=== PATIENT | female | born 1975 | race Caucasian/White ===

== ENCOUNTER → 2021-01-11 | Outpatient (CLI) | payer OTHER ==
[~2021-01-11] MED LIST: ARMOUR THYROID PO; CYMBALTA20 M2 PO; HYDCHL12.5 PO
[2021-01-11 09:22] LABS: BASOPHILS ABSOLUTE AUTO 0.04 K/mm3 (0.00-0.23); BASOPHILS PERCENT AUTO 1 % (0-2); EOSINOPHILS ABSOLUTE AUTO 0.34 K/mm3 (0.00-0.68); EOSINOPHILS PERCENT AUTO 5 % (0-6); Hematocrit 38.4 % (33.0-51.0); Hemoglobin 12.5 g/dL (11.5-16.0); IMMATURE GRAN ABSOLUTE AUTO 0.03 K/mm3 (0.00-0.10); IMMATURE GRAN PERCENT AUTO 0 % (0-1); LYMPHOCYTES ABSOLUTE AUTO 1.52 K/mm3 (0.84-5.20); LYMPHOCYTES PERCENT AUTO 20 % (21-46); MONOCYTES ABSOLUTE AUTO 0.43 K/mm3 (0.16-1.47); MONOCYTES PERCENT AUTO 6 % (4-13); Mean Corpuscular HGB 26.8 pg (26.0-34.0); Mean Corpuscular HGB Conc 32.6 g/dL (31.5-36.5); Mean Corpuscular Volume 82 fL (80-100); Mean Platelet Volume 9.7 fL (9.1-12.4); NEUTROPHILS ABSOLUTE AUTO 5.19 K/mm3 (1.96-9.15); NEUTROPHILS PERCENT AUTO 69 % (41-73); Platelet Count 273 K/mm3 (150-400); RDW Coefficient Variation 14.6 % (11.7-14.2); RDW Standard Deviation 43.1 fL (35.1-46.3); Red Blood Cell Count 4.66 M/mm3 (3.80-5.20); White Blood Cell Count 7.55 K/mm3 (4.00-11.30)
[2021-01-11 09:31] LABS: Alanine Aminotransfer (ALT/SGP 20 U/L (12-78); Albumin, Blood 3.5 g/dL (3.4-5.0); Albumin/Globulin Ratio 0.9 (0.8-1.8); Alk Phos 88 U/L (40-126); Anion Gap 6 mmol/L (6-16); Aspartate Aminotrans (AST/SGOT 9 U/L (12-37); Bilirubin, Total 0.5 mg/dL (0.1-1.0); Blood Urea Nitrogen 12 mg/dL (8-24); Bun/Creatinine Ratio 18.5 (12.0-20.0); CO2, Blood 28 mmol/L (21-32); Calcium, Blood 8.8 mg/dL (8.5-10.1); Chloride, Blood 106 mmol/L (98-108); Creatinine, Blood 0.65 mg/dL (0.40-1.00); Globulin, Blood 3.7 g/dL (2.2-4.0); Glomerular Filtration Rate >60 (60-); Glucose, Blood 90 mg/dL (70-99); Potassium, Blood 3.8 mmol/L (3.5-5.5); Sodium, Blood 140 mmol/L (136-145); Total Protein, Blood 7.2 g/dL (6.4-8.2)
== END | disposition home or self-care (01) ==
LOC: LAB SHORT 09:16
PROVIDERS: General Practice
DX: R10.9 Unspecified abdominal pain (principal); R82.90 Unspecified abnormal findings in urine
CPT/HCPCS: 80053; 85025; 87086

== ENCOUNTER 2021-01-14 21:00 | Inpatient (IN) | payer OTHER ==
[~2021-01-14] VITALS: Ht 160 cm; Wt 81.7 kg
[2021-01-14 21:15] LABS: Source, Urine Clean Catch
[2021-01-14 21:19] LABS: Appearance, Urine Cloudy (Clear); Bilirubin, Urine Neg (Neg); Blood, Urine 5+ (Neg); Color, Urine Amber (P-Yellow); Glucose Qualitative, Urine Neg (Neg); Ketones, Urine 1+ (Neg); Leukocyte Esterase, Urine 2+ (Neg); Nitrite, Urine Neg (Neg); Protein, Urine 3+ (Neg); Specific Gravity, Urine 1.025 (1.003-1.022); Urobilinogen, Urine 1+ (Normal)
[2021-01-14 21:29] LABS: Bacteria Mod /hpf; Calcium Oxalate Crystals Few /hpf; Red Blood Cells, Urine TNTC /hpf (0-2); Squamous Epithelial Cells Few /hpf (Few); White Blood Cells, Urine 0-2 /hpf (0-5)
[2021-01-15 00:01] LABS: BASOPHILS ABSOLUTE AUTO 0.05 K/mm3 (0.00-0.23); BASOPHILS PERCENT AUTO 1 % (0-2); EOSINOPHILS ABSOLUTE AUTO 0.41 K/mm3 (0.00-0.68); EOSINOPHILS PERCENT AUTO 4 % (0-6); Hematocrit 38.5 % (33.0-51.0); Hemoglobin 12.6 g/dL (11.5-16.0); IMMATURE GRAN ABSOLUTE AUTO 0.02 K/mm3 (0.00-0.10); IMMATURE GRAN PERCENT AUTO 0 % (0-1); LYMPHOCYTES ABSOLUTE AUTO 2.29 K/mm3 (0.84-5.20); LYMPHOCYTES PERCENT AUTO 22 % (21-46); MONOCYTES ABSOLUTE AUTO 0.63 K/mm3 (0.16-1.47); MONOCYTES PERCENT AUTO 6 % (4-13); Mean Corpuscular HGB Conc 32.7 g/dL (31.5-36.5); Mean Corpuscular Volume 82 fL (80-100); Mean Platelet Volume 9.7 fL (9.1-12.4); NEUTROPHILS ABSOLUTE AUTO 6.99 K/mm3 (1.96-9.15); NEUTROPHILS PERCENT AUTO 67 % (41-73); Platelet Count 317 K/mm3 (150-400); RDW Coefficient Variation 14.1 % (11.7-14.2); RDW Standard Deviation 42.2 fL (35.1-46.3); Red Blood Cell Count 4.67 M/mm3 (3.80-5.20); White Blood Cell Count 10.39 K/mm3 (4.00-11.30)
[2021-01-15 00:28] LABS: Alanine Aminotransfer (ALT/SGP 23 U/L (12-78); Albumin, Blood 3.4 g/dL (3.4-5.0); Albumin/Globulin Ratio 0.8 (0.8-1.8); Alk Phos 94 U/L (50-136); Anion Gap 6 mmol/L (6-16); Aspartate Aminotrans (AST/SGOT 19 U/L (12-37); Bilirubin, Total 0.2 mg/dL (0.1-1.0); Blood Urea Nitrogen 17 mg/dL (8-24); Bun/Creatinine Ratio 17.3 (12.0-20.0); CO2, Blood 24 mmol/L (21-32); Calcium, Blood 8.9 mg/dL (8.5-10.1); Chloride, Blood 110 mmol/L (98-108); Creatinine, Blood 0.98 mg/dL (0.40-1.00); Glomerular Filtration Rate >60 (60-); Glucose, Blood 102 mg/dL (70-99); Potassium, Blood 3.7 mmol/L (3.5-5.5); Sodium, Blood 140 mmol/L (136-145); Total Protein, Blood 7.4 g/dL (6.4-8.2)
[2021-01-15 00:43] LABS: Source, Urine Catheter
[2021-01-15 00:47] LABS: Appearance, Urine Cloudy (Clear); Bilirubin, Urine Neg (Neg); Blood, Urine 5+ (Neg); Color, Urine Amber (P-Yellow); Glucose Qualitative, Urine Neg (Neg); Ketones, Urine 1+ (Neg); Leukocyte Esterase, Urine 3+ (Neg); Nitrite, Urine Pos (Neg); Protein, Urine 4+ (Neg); Specific Gravity, Urine 1.025 (1.003-1.022); Urobilinogen, Urine 1+ (Normal)
[2021-01-15 00:54] LABS: Bacteria Many /hpf; Red Blood Cells, Urine TNTC /hpf (0-2); Squamous Epithelial Cells Few /hpf (Few); White Blood Cells, Urine 50-100 /hpf (0-5)
[2021-01-15 00:55] LABS: Calcium Oxalate Crystals Mod /hpf
[2021-01-15 07:45] LABS: Influenza A, PCR NEGATIVE (NEGATIVE); Influenza B, PCR NEGATIVE (NEGATIVE); Resp Syncytial Virus, PCR NEGATIVE (NEGATIVE); SARS-Cov-2 (COVID-19) PCR, MMC NEGATIVE (NEGATIVE)
[2021-01-15] MEDS ORDERED: CYMBALTA20 M2 PO (13:36)
[2021-01-15] MEDS ORDERED: HYDCHL12.5 PO (13:37)
[2021-01-15] MEDS ORDERED: ARMOUR THYROID PO (13:37)
[2021-01-16 05:15] LABS: BASOPHILS ABSOLUTE AUTO 0.05 K/mm3 (0.00-0.23); BASOPHILS PERCENT AUTO 1 % (0-2); EOSINOPHILS ABSOLUTE AUTO 0.43 K/mm3 (0.00-0.68); EOSINOPHILS PERCENT AUTO 7 % (0-6); Hematocrit 34.3 % (33.0-51.0); Hemoglobin 10.9 g/dL (11.5-16.0); IMMATURE GRAN ABSOLUTE AUTO 0.01 K/mm3 (0.00-0.10); IMMATURE GRAN PERCENT AUTO 0 % (0-1); LYMPHOCYTES ABSOLUTE AUTO 2.23 K/mm3 (0.84-5.20); LYMPHOCYTES PERCENT AUTO 34 % (21-46); MONOCYTES ABSOLUTE AUTO 0.44 K/mm3 (0.16-1.47); MONOCYTES PERCENT AUTO 7 % (4-13); Mean Corpuscular HGB 27.1 pg (26.0-34.0); Mean Corpuscular HGB Conc 31.8 g/dL (31.5-36.5); Mean Corpuscular Volume 85 fL (80-100); Mean Platelet Volume 10.1 fL (9.1-12.4); NEUTROPHILS ABSOLUTE AUTO 3.48 K/mm3 (1.96-9.15); NEUTROPHILS PERCENT AUTO 52 % (41-73); Platelet Count 248 K/mm3 (150-400); RDW Coefficient Variation 14.5 % (11.7-14.2); RDW Standard Deviation 45.2 fL (35.1-46.3); Red Blood Cell Count 4.02 M/mm3 (3.80-5.20); White Blood Cell Count 6.64 K/mm3 (4.00-11.30)
[2021-01-16 06:12] LABS: Alanine Aminotransfer (ALT/SGP 17 U/L (12-78); Albumin, Blood 2.6 g/dL (3.4-5.0); Albumin/Globulin Ratio 0.9 (0.8-1.8); Alk Phos 79 U/L (50-136); Anion Gap 6 mmol/L (6-16); Aspartate Aminotrans (AST/SGOT 13 U/L (12-37); Bilirubin, Total 0.2 mg/dL (0.1-1.0); Blood Urea Nitrogen 8 mg/dL (8-24); Bun/Creatinine Ratio 13.7 (12.0-20.0); CO2, Blood 24 mmol/L (21-32); Calcium, Blood 8.4 mg/dL (8.5-10.1); Chloride, Blood 113 mmol/L (98-108); Creatinine, Blood 0.58 mg/dL (0.40-1.00); Glomerular Filtration Rate >60 (60-); Glucose, Blood 98 mg/dL (70-99); Potassium, Blood 3.7 mmol/L (3.5-5.5); Sodium, Blood 143 mmol/L (136-145); Total Protein, Blood 5.6 g/dL (6.4-8.2)
--- NOTE | 2021-01-16 10:12 | NUR ---
PT SENT TO PRE-OP 0825- MEDICATED WITH OXYCODONE 5MG THIS AM FOR C/O ABD DISCOMFORT. PT IS NERVOUS ABOUT PROCEDURE, REASSURANCE OFFERED. AT BEDSIDE FOR SUPPORT.
--- NOTE | 2021-01-16 13:20 | NUR ---
PT RETURNED TO ROOM S/P NEPHROSTOMY 1030- HAVING HAD 10 MG VERSED/ 300MG FENT DR RAMIRES PERFORMED PROCEDURE, STATED HE FLUSHED STONE HOPEFULLY INTO THE BLADDER, AWAITING TO PASS THROUGH URITNATION. NURSING TO STRAIN URINE. NEPH TUBE IS NOT CONNECTED TO DRAINAGE, BUT IF PT HAVING SEVERE PAIN, RN INSTRUCTED TO CONNECT IT TO DRAINAGE TO ENSURE URINE NOT BACKING INTO KIDNEY. AT 1230 PT WAS HAVING SEVERE PAIN DIRECTLY OVER NEPH SITE, MEDICATED WITH FENT WITH MIN RELEIF. RN CONNECTED NEPH TO DRAINAGE BAG AND ONLY 40ML TEA COLORED URINE OUT. TOOK OFF AND OFF TO PT. PT SETTLED IN AFTER FENT AND ABLE TO FALL ASLEEP. WILL CONT TO OTIS.
--- NOTE | 2021-01-16 16:51 | NUR ---
SUMMARY- PT HAD PROCEDURE WITH DR RAMIRES TODAY FOR KIDNEY STONE L SIDE- PLACED NEPH TUBE, OFF TO PT. TO BE OPENED WITH SEVERE PAIN INCASE OF HYDRONEPHROSIS. PT HAS BEEN ABLE TO VOID, RED TINGE URINE SINCE PROCEDURE. BLADDER SCAN SHOWED NO RESIDUAL. PT HAS BEEN HAVING PAIN DESCRIBED SEVERE PRESURE AROUND NEPH TUBE SITE AND LOWER ON LEFT. MEDICATED WITH FENT, DILAUDID IV X1 WITH RELEIF FROM 12/09-06/09. STARTED ON ORAL DILAUDID TABS- WILL SEE IF THEY ARE EFFECTIVE. STRAINING URINE, NO STONES VISUALIZED. DR HEBERT SPOKE WITH PT AND THIS PM ABOUT PLAN TO KEEP PT TONIGHT TO MANAGE PAIN, THAN TO RE-EVAL WITH CT AND SEE IF PT COULD BE DC'D HOME OR TO UROLOGY IN [facility]. PT TOLERATING FOOD AND FLUIDS. NAPPING ON/OFF TODAY AFTER PROCEDURE.
--- NOTE | 2021-01-17 04:19 | NUR ---
SHIFT SUMMARY: NEPHROSTOMY HAS INCREASED ROBINS PAIN LEVEL T/O THE NIGHT CAUSING HER TO BE UNCOMFORTABLE WITH INCREASE IN DRY HEVES. NEW ORDER FOR PHENERGAN SUPPOSITORY WHICH HELPED TO STOP THE NAUSEA, WAS ABLE TO HOLD DOWN PAIN MEDICATION AND GET SOME SLEEP. URINE IS STILL BLOOD TINGED, STRAINING WITH NO STONE OF YET. PAIN HAS AVERAGED 9-10, ICE HAS BEEN APPLIED TO ASSIST. REPOSITIONING WELL. SHE DOES NOT WANT TO GO HOME UNLESS SHE HAS BETTER WAY TO CONTROL HER PAIN, SHE DOES NOT WANT TO KEEP THE NEPHROSTOMY IN IF SHE IS GOING HOME. ENCOURAGED HER TO HOLD ON TILL ULTRASOUND IS COMPLETED TODAY AND SHE TALK WITH . [place] [employer]. AFEBRILE. WILL CONTINUE TO MONITOR. CALL LIGHT IN REACH.
[2021-01-17 04:58] LABS: BASOPHILS ABSOLUTE AUTO 0.05 K/mm3 (0.00-0.23); BASOPHILS PERCENT AUTO 1 % (0-2); EOSINOPHILS ABSOLUTE AUTO 0.29 K/mm3 (0.00-0.68); EOSINOPHILS PERCENT AUTO 3 % (0-6); Hematocrit 34.7 % (33.0-51.0); Hemoglobin 11.2 g/dL (11.5-16.0); IMMATURE GRAN ABSOLUTE AUTO 0.02 K/mm3 (0.00-0.10); IMMATURE GRAN PERCENT AUTO 0 % (0-1); LYMPHOCYTES ABSOLUTE AUTO 1.71 K/mm3 (0.84-5.20); LYMPHOCYTES PERCENT AUTO 18 % (21-46); MONOCYTES ABSOLUTE AUTO 0.67 K/mm3 (0.16-1.47); MONOCYTES PERCENT AUTO 7 % (4-13); Mean Corpuscular HGB 27.4 pg (26.0-34.0); Mean Corpuscular HGB Conc 32.3 g/dL (31.5-36.5); Mean Corpuscular Volume 85 fL (80-100); Mean Platelet Volume 9.5 fL (9.1-12.4); NEUTROPHILS ABSOLUTE AUTO 6.87 K/mm3 (1.96-9.15); NEUTROPHILS PERCENT AUTO 72 % (41-73); Platelet Count 254 K/mm3 (150-400); RDW Coefficient Variation 14.1 % (11.7-14.2); RDW Standard Deviation 43.7 fL (35.1-46.3); Red Blood Cell Count 4.09 M/mm3 (3.80-5.20); White Blood Cell Count 9.61 K/mm3 (4.00-11.30)
[2021-01-17 05:32] LABS: Anion Gap 5 mmol/L (6-16); Blood Urea Nitrogen 8 mg/dL (8-24); Bun/Creatinine Ratio 9.4 (12.0-20.0); CO2, Blood 25 mmol/L (21-32); Calcium, Blood 8.4 mg/dL (8.5-10.1); Chloride, Blood 112 mmol/L (98-108); Creatinine, Blood 0.85 mg/dL (0.40-1.00); Glomerular Filtration Rate >60 (60-); Glucose, Blood 108 mg/dL (70-99); Potassium, Blood 4.2 mmol/L (3.5-5.5); Sodium, Blood 142 mmol/L (136-145)
--- NOTE | 2021-01-17 08:00 | NUR ---
PT P[employer] A/O STATES [employer]. STATES PAIN SOME BETTER TODAY THAN LAST DYLAN. PAIN AT UROSTOMY SITE MOSTLY, AND ABD SECONDLY. H/R REG, NO MURMER NOTED. PER TELE NSR AT 87. LUNGS CLEAR, RESP EASY, UNLABORED. ON R/A. VOIDS BATHROOM. INDEPENDNT. HAT WITH URINE TO BE STRAINED FOR STONES. BED IN LOW POSITION, CALL LITE IN REACH, CALLS APROP
--- NOTE | 2021-01-17 18:39 | NUR ---
PT STATES MUCH BETER PAIN CONTROL SINCE NEPHROSTOMY TUBE NOW DRAINING . HAS PUT OUT 700 CC FROM NEPHROSTOMY SO FAR TODAY. NO NEW CONCERNS NOTED. EXPECTING D/C PER DR REYNOSO TOMORROW FOR UROLOGIST [facility] TOMORROW.. BED IN LOW POSITION, CALL LITE IN REACH. CALLS APPROP
[2021-01-18 04:41] LABS: BASOPHILS ABSOLUTE AUTO 0.05 K/mm3 (0.00-0.23); BASOPHILS PERCENT AUTO 1 % (0-2); EOSINOPHILS ABSOLUTE AUTO 0.32 K/mm3 (0.00-0.68); EOSINOPHILS PERCENT AUTO 5 % (0-6); Hematocrit 33.8 % (33.0-51.0); Hemoglobin 10.9 g/dL (11.5-16.0); IMMATURE GRAN ABSOLUTE AUTO 0.02 K/mm3 (0.00-0.10); IMMATURE GRAN PERCENT AUTO 0 % (0-1); LYMPHOCYTES ABSOLUTE AUTO 1.87 K/mm3 (0.84-5.20); LYMPHOCYTES PERCENT AUTO 30 % (21-46); MONOCYTES PERCENT AUTO 8 % (4-13); Mean Corpuscular HGB 27.3 pg (26.0-34.0); Mean Corpuscular HGB Conc 32.2 g/dL (31.5-36.5); Mean Corpuscular Volume 85 fL (80-100); Mean Platelet Volume 9.5 fL (9.1-12.4); NEUTROPHILS ABSOLUTE AUTO 3.53 K/mm3 (1.96-9.15); NEUTROPHILS PERCENT AUTO 56 % (41-73); Platelet Count 243 K/mm3 (150-400); RDW Coefficient Variation 14.1 % (11.7-14.2); RDW Standard Deviation 43.6 fL (35.1-46.3); Red Blood Cell Count 3.99 M/mm3 (3.80-5.20); White Blood Cell Count 6.29 K/mm3 (4.00-11.30)
[2021-01-18 05:12] LABS: Anion Gap 3 mmol/L (6-16); Blood Urea Nitrogen 9 mg/dL (8-24); Bun/Creatinine Ratio 13.7 (12.0-20.0); CO2, Blood 29 mmol/L (21-32); Chloride, Blood 110 mmol/L (98-108); Creatinine, Blood 0.66 mg/dL (0.40-1.00); Glomerular Filtration Rate >60 (60-); Glucose, Blood 97 mg/dL (70-99); Potassium, Blood 3.5 mmol/L (3.5-5.5); Sodium, Blood 142 mmol/L (136-145)
--- NOTE | 2021-01-18 06:00 | NUR ---
SAND MOLDER SUMMARY DR HERNÁNDEZ IN TO SEE PT AT START OF SHIFT. HE WILL TAKE PT LATER THIS AM TO ADJSUT NEPHROSTOMY TUBE. PT HAS BEEN NPO SINCE MIDNIGHT. MEDICATED X2 FOR FLANK PAIN. NEPHROSTOMY DRAINING LIGHT PINK TINGED URINE. PT EXPRESSES BEING NERVOUS FOR PROCEDURE TODAY AND IS ALSO NERVOUS ABOUT GOING HOME WITH HER NEPHROSTOMY. VSS, WILL CONTINUE TO MONITOR.
--- NOTE | 2021-01-18 07:39 | NUR ---
PT TO DAY SURG FOR RE-PLACEMENT OF NEPHROSTOMY TUBE
[2021-01-18] MEDS ORDERED: Acetaminophen325 M1 PO (09:51)
[2021-01-18] MEDS ORDERED: Cymbalta20 MG PO (09:52)
[2021-01-18] MEDS ORDERED: CYCLOBENZAPRINE5 MG PO (09:52)
[2021-01-18] MEDS ORDERED: TAMS.4ER PO (09:53)
[2021-01-18] MEDS ORDERED: HYDMOR2 PO (09:53)
[2021-01-18] MEDS ORDERED: PROM25 PO (09:54)
[2021-01-18] MEDS ORDERED: SENN187 PO (09:54)
[2021-01-18] MEDS ORDERED: DOCU100 PO (09:54)
--- NOTE | 2021-01-18 12:05 | NUR ---
DISCAHRGE REVIEWD WITH PT AND HUSB. IV PULLED INTACT. TELE REMVOED. PT WHEELED TO DOOR AT 1205 BY AIDE.
== END 2021-01-18 12:12 | disposition home or self-care (01) | DRG 690 ==
LOC: ER 21:00 → ERHOLD 21:01 → MEDS 01-15 14:56 → ERHOLD 01-15 14:56 → MEDS 01-15 18:23
PROVIDERS: Emergency Medicine; Internal Medicine; Physician Assistant; ADMIT Internal Medicine
PROC: 0T9130Z Drainage of Left Kidney with Drainage Device, Percutaneous Approach (ICD-10-PCS; principal; 2021-01-16)
PROC: 0T25X0Z Change Drainage Device in Kidney, External Approach (ICD-10-PCS; 2021-01-18)
DX: N13.6 Pyonephrosis (principal); E66.9 Obesity, unspecified; Z79.899 Other long term (current) drug therapy; Z20.822 Contact with and (suspected) exposure to COVID-19; Z68.31 Body mass index [BMI] 31.0-31.9, adult
CPT/HCPCS: 0241U; 36415; 50432; 50435; 51702; 51798; 74176; 76770; 80048; 80053; 81001; 85025; 87086; 96365; 96375; 96376; 99152; 99153; 99285-25; A9270; C1729; C1769; C1887; J0696; J1170; J1885; J2060; J2250; J2405; J2550; J3010; J7030; J7040; Q9967

== ENCOUNTER → 2021-03-18 | Outpatient (CLI) | payer OTHER ==
[~2021-03-18] MED LIST changes: +Acetaminophen325 M1 PO; +CYCLOBENZAPRINE5 MG PO; +Cymbalta20 MG PO; +DOCU100 PO; +HYDMOR2 PO; +PROM25 PO; +SENN187 PO; +TAMS.4ER PO
== END | disposition home or self-care (01) ==
LOC: LAB SHORT 07:00 → LAB FUT 02-12 16:15
DX: N20.2 Calculus of kidney with calculus of ureter (principal)
CPT/HCPCS: 81050